=== PATIENT | male | born 1955 | race Caucasian/White ===

== ENCOUNTER 2023-06-26 17:32 | Outpatient (CLI) | payer OTHER | END 2023-06-26 17:35 | disposition home or self-care (01) | LOC: LAB 17:32 | PROVIDERS: ATTEND Urology | DX: R97.20 Elevated prostate specific antigen [PSA] (principal) ==

== ENCOUNTER 2023-07-05 06:57 | Outpatient (CLI) | payer OTHER | END 2023-07-05 10:52 | disposition home or self-care (01) | LOC: SONOGRAMA 06:57 | PROVIDERS: ATTEND Urology | DX: C61 Malignant neoplasm of prostate (principal); D29.1 Benign neoplasm of prostate; N41.8 Other inflammatory diseases of prostate ==

== ENCOUNTER 2024-01-15 18:39 | Outpatient (CLI) | payer OTHER | END 2024-01-16 13:12 | disposition home or self-care (01) | LOC: LAB 18:39 | PROVIDERS: ATTEND Urology | DX: R97.20 Elevated prostate specific antigen [PSA] (principal) ==